=== PATIENT | female | born 1955 | race Caucasian/White ===

== ENCOUNTER → 2018-01-02 | Outpatient (CLI) | payer BC ==
[~2018-01-02] MED LIST: ACET-1256 PO; ATEN-173 PO; BENA20TA14 PO; CELLULAR VITALITY PO; FISH OIL PO; FURO-85 PO; NAPR1TAB9 PO; PANT40TA PO; VENL150C PO; ZONI100C39 PO; [UNRECOGNIZED DRUG - OTHER] PO
[2018-01-02 16:13] LABS: ALBUMIN 3.4 gm/dl (3.4-5.0); ALKALINE PHOSPHATASE 85 U/L (45-117); ALT/SGPT 26 U/L (12-78); AST/SGOT 20 U/L (15-37); CHOLESTEROL 205 mg/dl (0-200); LDL CHOLESTEROL CALCULATED 116 mg/dl
== END | disposition home or self-care (01) ==
LOC: C.LAB 11:40
PROVIDERS: ATTEND Internal Medicine Cardiovascular Disease
DX: I10 Essential (primary) hypertension (principal)

== ENCOUNTER 2018-01-26 08:32 | Inpatient (IN) | payer BC ==
[2018-01-02 11:56] VITALS: Ht 154.9 cm; Wt 112.1 kg
--- NOTE | 2018-01-02 12:36 | PAT Medication Instructions ---
Service Date Jan 02, 2018. Current Home Medication List Acetaminophen (Tylenol), 1-2 TAB PO UD PRN for PRN Atenolol (Tenormin), 25 MG PO BID Benazepril (Lotensin), 20 MG PO QAM Furosemide (Lasix), 20 MG PO QAM Naproxen (Aleve), 220 MG PO UD PRN for PRN Pantoprazole (Protonix), 40 MG PO QAM Venlafaxine Hcl (Effexor Xr), 2 CAP PO HS Zonisamide (Zonegran), 2 CAP PO HS [Cellular Vitality ], Unknown Dose PO QAM [Fish Oil ], 2 CAP PO QAM [Serenity Plus ], 2 CAP PO HS Medication Instructions For Your Scheduled Surgery -Contact your surgeonfor instructions for: Naproxen (Aleve), 220 MG PO UD PRN for PRN - Hold the following medications 2 weeks prior to surgery: [Cellular Vitality ], Unknown Dose PO QAM [Fish Oil ], 2 CAP PO QAM - Hold the following medications the morning of surgery: Benazepril (Lotensin), 20 MG PO QAM Furosemide (Lasix), 20 MG PO QAM - Take the following medications the morning of surgery with a sip of water: Acetaminophen (Tylenol), 1-2 TAB PO UD PRN for PRN (if needed, can be taken up to four hours before surgery) Atenolol (Tenormin), 25 MG PO BID Pantoprazole (Protonix), 40 MG PO QAM - Take the following medications as scheduled the night before surgery: Acetaminophen (Tylenol), 1-2 TAB PO UD PRN for PRN (if needed) Atenolol (Tenormin), 25 MG PO BID Venlafaxine Hcl (Effexor Xr), 2 CAP PO HS Zonisamide (Zonegran), 2 CAP PO HS [Serenity Plus ], 2 CAP PO HS If you have any questions please call us at [phone] or [phone] or [phone]
[2018-01-02 13:14] LABS: BASO % 0.7 %; BASO ABS # 0.05 K/uL (0-0.2); EOS % 1.9 %; EOS ABS # 0.13 K/uL (0-0.5); HEMATOCRIT 42.7 % (37-47); IG# 0.02 K/uL (0.00-0.02); LYMPH % 34.1 %; LYMPH ABS # 2.39 K/uL (1.2-3.4); MEAN CORPUSCULAR HEMOGLOBIN 31.8 pg (25-34); MEAN CORPUSCULAR HGB CONC 32.8 g/dl (32-36); MEAN PLATELET VOLUME 10.3 fL (7.4-10.4); MONO % 10.3 %; MONO ABS # 0.72 K/uL (0.11-0.59); NEUT % 52.7 %; NEUT ABS # 3.69 K/uL (1.4-6.5); PLATELET COUNT 324 K/uL (130-400); RED CELL DISTRIBUTION WIDTH CV 13.6 % (11.5-14.5); RED CELL DISTRIBUTION WIDTH SD 48.6 fL (36.4-46.3)
[2018-01-02 13:27] LABS: CALCIUM 8.8 mg/dl (8.5-10.1); CREATININE 0.82 mg/dl (0.60-1.20); POTASSIUM 4.3 mmol/L (3.5-5.1)
--- NOTE | 2018-01-02 13:31 | DIAGNOSTIC IMAGING REPORT ---
CHEST 2 VIEWS ROUTINE CLINICAL HISTORY: PAT preoperative evaluation COMPARISON STUDY: No previous studies for comparison. FINDINGS: The bones soft tissues and hemidiaphragms are normal. The cardiomediastinal silhouette is normal. The lungs are clear. The pulmonary vasculature is normal. IMPRESSION: Negative chest. The above report was generated using voice recognition software. It may contain grammatical, syntax or spelling errors. Electronically signed by: Davi Victor M.D. 01/02/2018 1:29 PM Dictated Date/Time: 01/02/2018 1:29 PM
[2018-01-26] VITALS (8 sets, daily range): BP systolic 109–157; BP diastolic 58–77; PULSE 68–104; TEMP 35.8–36.8; O2SAT 91–99
[~2018-01-26] VITALS: Ht 154.9 cm; Wt 112.1 kg
[~2018-01-26 08:32] MED LIST changes: +LACTATED RINGER'S 1000ML 1,000 ML IV SCH
[2018-01-26] MEDS ORDERED: LINIGEL19 PO (09:14)
[2018-01-26 09:22] LABS: PTT PATIENT 26.1 SECONDS (21.0-31.0)
[2018-01-26] MEDS ORDERED: MIDAZOLAM HCL 1 MG/ML 2ML VIAL ONE (09:56)
[2018-01-26] MEDS ORDERED: FENTANYL CITRATE INJ 50 MCG/1 ML 2 ML VIAL ONE ×3 (09:56→11:54)
--- NOTE | 2018-01-26 10:05 | History & Physical Bridge Note ---
H&P Re-Evaluation Bridge Note: I have examined the patient, reviewed the History & Physical and in the interval since the performance of the History & Physical I have noted the following changes of clinical significance: No changes noted
--- NOTE | 2018-01-26 10:06 | History and Physical ---
History & Physical Date Jan 26, 2018. Chief Complaint Back and leg pain History of Present Illness The patient is a 63 year old female with complaints of back and leg pain Additional History Hepatic Disease: No Endocrine Disorder: No Kidney Disease: No Hypertension: Yes Heart Disease: No Bleeding Tendencies: No Infectious Diseases: No Allergies Coded Allergies: Penicillins (Verified Allergy, Unknown, RASH, 01/26/18) Sulfa Antibiotics (Verified Allergy, Unknown, RASH, 01/26/18) Home Medications Scheduled Atenolol (Tenormin), 25 MG PO BID Benazepril (Lotensin), 20 MG PO QAM Furosemide (Lasix), 20 MG PO QAM Liniments & Rubs (Deep Blue Relief), PO DIRECTED Pantoprazole (Protonix), 40 MG PO QAM Venlafaxine Hcl (Effexor Xr), 2 CAP PO HS Zonisamide (Zonegran), 2 CAP PO HS [Cellular Vitality ], Unknown Dose PO QAM [Fish Oil ], 2 CAP PO QAM [Serenity Plus ], 2 CAP PO HS Scheduled PRN Acetaminophen (Tylenol), 1-2 TAB PO UD PRN for PRN Physical Examination Skin: warm/dry, no rash Eyes: normal inspection, EOMI, sclerae normal ENT: normal ENT inspection, pharynx normal Head: normocephalic, atraumatic Neck: supple, no adenopathy, trachea midline Respiratory/Chest: lungs clear, normal breath sounds, no respiratory distress Cardiovascular: regular rate, rhythm, no edema, no murmur Abdomen / GI: normal bowel sounds, non tender Back: normal inspection Extremities: normal inspection, normal range of motion Neurologic/Psych: no motor/sensory deficits, alert, normal reflexes, oriented x 3 Diagnosis Lumbar spinal stenosis with spondylolisthesis Plan of Treatment L5-S1 decompression and fusion
[2018-01-26] MEDS ORDERED: CLINDAMYCIN 600 MG/54 ML D5W IV ONE (10:10)
[2018-01-26] MEDS ORDERED: NURSING VERBAL MED ORDER ONE (10:15)
[2018-01-26] MEDS ORDERED: BUPIVACAINE/EPINEPHRINE 0.5% MPF 1:200,000 30 ML VIAL ONE (10:24)
[2018-01-26] MEDS ORDERED: BACITRACIN 50000 UNIT VIAL ONE (10:24)
[2018-01-26] MEDS ORDERED: ATROPINE SULFATE 0.1 MG/ML 5ML SYR IV PRN (10:30)
[2018-01-26] MEDS ORDERED: ONDANSETRON INJ 2 MG/ML 2 ML VIAL IV PRN ×2 (10:30→12:45)
[2018-01-26] MEDS ORDERED: EpHEDrine SULFATE INJ 50 MG/ML AMP IV PRN (10:30)
[2018-01-26] MEDS ORDERED: HYDROmorphone INJ 2 MG/ML SYR/VIAL ONE ×2 (10:59→12:41)
[2018-01-26] MEDS ORDERED: DEXAMETHASONE SOD INJ 4 MG/ML VIAL ONE (12:18)
[2018-01-26] MEDS ORDERED: PROPOFOL IV EMULSION 10 MG/ML 20 ML VIAL IV ONE (12:18)
[2018-01-26] MEDS ORDERED: LIDOCAINE HCL 2% 2 ML VIAL (20MG/ML) ONE (12:18)
[2018-01-26] MEDS ORDERED: FLOSEAL HEMOSTATIC MATRIX 10ML TOP ONE (12:32)
[2018-01-26] MEDS ORDERED: SODIUM CHLORIDE 0.9% 1000ML 1,000 ML IV SCH (12:39)
--- NOTE | 2018-01-26 12:39 | [facility] Operative Report ---
Operative Report Operative Date Jan 26, 2018. Pre-Operative Diagnosis Lumbar Spinal Stenosis Post-Operative Diagnosis Same Procedure(s) Performed 1. Lumbar decompression medial facetectomies foraminotomies L4-5 L5-S1. #2 posterior spinal fusion L5-S1. #3 placement posterior instrumentation L5-S1. #4 interbody fusion L5-S1. #5 placement peek cage 13 x 26 mm L5-S1. #6 laser of locally harvested Jqauez's allograft in the posterior lateral gutters. #7 placement InFUSE collagen sponge, mass graft in the posterior lateral gutters OsteoSet bone graft in the interbody space. Surgeon Dr. Araujo Lumber Stacker Operator Surgeon(s) Ella Hastings PA-C Estimated Blood Loss 100 Findings Severe spinal stenosis Description of Procedure Patient was met with preoperatively case discussed all questions addressed. After informed consent obtained patient was taken to the operative suite underwent intubation and placed in a prone position on the Vincent table on top of the Tl frame. All bony prominences were well-padded eyes inspected to ensure no external pressure placed upon the. This point the lumbar spine was prepped and draped in the normal sterile fashion. Sharp dissection with the assistance of Bovie cautery was performed down to and exposing the lamina and transverse process of L5 and sacral ala bilaterally. Obvious severe facet hypertrophy was appreciated. Complete laminectomy of L5 partial laminectomy was then performed addressing severe lateral recess and foraminal stenosis. Pedicle screws were then placed in L5 and S1 levels bilaterally with the assistance of fluoroscopy and appropriately sized damon placed. Through a transforaminal approach on the right complete discectomy was performed endplates created to subcortical bleeding bone and a 13 x 26 mm peek cage with ostial amp bone graft tapped in position. Rods were then locked in final position bilaterally. The transverse processes L5 and sacral ala burred to subcortical bleeding bone. Infuse collagen sponge master for local harvested Jaquez's allograft was placed in the posterior lateral gutters. 15 round MIGUEL A drain inserted. Incision was then closed with 1 Vicryl in the fascia 2-0 Vicryl subcutaneous 3 4-0 Monocryl for fashion closure Steri-Strips sterile dressings placed. Patient will continue PACU in stable condition. Please note Ella Mccormack was present throughout the entire procedure involved in patient positioning complex portions of the surgery and fashion closure. I attest to the content of the Intraoperative Record and any orders documented therein. Any exceptions are noted below.
[2018-01-26] MEDS ORDERED: NEOSTIGMINE METHYLSULFATE 1 MG/ML 10ML VIAL ONE (12:43)
[2018-01-26] MEDS ORDERED: ONDANSETRON INJ 2 MG/ML 2 ML VIAL ONE (12:43)
[2018-01-26] MEDS ORDERED: PHENYLEPHRINE 100MCG/ML 5ML SYR ONE (12:43)
[2018-01-26] MEDS ORDERED: GLYCOPYRROLATE INJ 0.2 MG/ML VIAL ONE (12:43)
[2018-01-26] MEDS ORDERED: EpHEDrine SULFATE 50MG/5ML SYR ONE (12:43)
[2018-01-26] MEDS ORDERED: BISACODYL 10 MG SUPP PR PRN (12:45)
[2018-01-26] MEDS ORDERED: METOCLOPRAMIDE HCL INJ 5 MG/ML 2 ML VIAL IV PRN (12:45)
[2018-01-26] MEDS ORDERED: ACETAMINOPHEN IV 100 ML IV PRN (12:45)
[2018-01-26] MEDS ORDERED: hydrOXYzine HCL 25 MG TAB PO PRN (12:45)
[2018-01-26] MEDS ORDERED: LORAZEPAM 0.5 MG TAB PO PRN (12:45)
[2018-01-26] MEDS ORDERED: FAMOTIDINE 20 MG TAB PO PRN (12:45)
[2018-01-26] MEDS ORDERED: DO NOT ADMINISTER PNEUMOCOCCAL VACCINE PRN (12:45)
[2018-01-26] MEDS ORDERED: SOD PHOSPHATE/SOD BIPHOSPHATE ENEMA 132 ML BTL PR PRN (12:45)
[2018-01-26] MEDS ORDERED: LORAZEPAM INJ 0.5 MG in SYRINGE 0.75 ML IV PRN (12:45)
[2018-01-26] MEDS ORDERED: NALOXONE HCL 0.4 MG/1 ML VIAL/CARP IV PRN ×2 (12:45)
[2018-01-26] MEDS ORDERED: MAGNESIUM HYDROXIDE SUSP 30 ML UDC PO PRN (12:45)
[2018-01-26] MEDS ORDERED: ALUMINUM/MAGNESIUM SUSP 30 ML UDC PO PRN (12:45)
[2018-01-26] MEDS ORDERED: DO NOT ADMINISTER FLU VACCINE PRN (12:45)
[2018-01-26] MEDS ORDERED: PROMETHAZINE HCL INJ 12.5 MG in SODIUM CHLORIDE 0.9% 50ML 50 ML IV PRN (12:45)
--- NOTE | 2018-01-26 13:05 | DIAGNOSTIC IMAGING REPORT ---
INTRAOPERATIVE RADIOGRAPHS CLINICAL HISTORY: L5-S1 spinal fusion. Fluoroscopy time: 17 seconds. FINDINGS: 2 spot fluoroscopic views of the lumbar spine are presented. There is been discectomy at L5-S1 with laminectomy and posterior fusion at this level. Interpedicular screws are present at both levels. Orthopedic hardware appears intact. IMPRESSION: Intraoperative images from L5 -S1 spinal fusion as above. Electronically signed by: Marshall Mendes M.D. 01/26/2018 1:03 PM Dictated Date/Time: 01/26/2018 1:02 PM
[2018-01-26] MEDS ORDERED: HYDROmorphone HCL 0.5MG/ML 50 ML CASSETTE ONE ×2 (13:06→13:07)
[2018-01-26] MEDS: FENTANYL CITRATE INJ 50 MCG/1 ML 2 ML VIAL IV PRN ×4 (13:22→13:37)
--- NOTE | 2018-01-26 14:23 | Anesthesiology Progress Note ---
Anesthesia Post Op Note Date & Time Jan 26, 2018 at 14:23 Vital Signs Pain Intensity: 4 Vital Signs Past 12 Hours Date Time Temp Pulse Resp B/P (MAP) Pulse Ox O2 Delivery O2 Flow Rate FiO2 01/26/18 14:07 93 20 98 01/26/18 14:07 93 20 01/26/18 14:06 140/54 /18 14:02 86 13 01/26/18 14:02 87 13 98 01/26/18 14:01 129/46 01/26/18 13:58 147/72 18 13:57 89 14 01/26/18 13:57 91 14 99 18 13:52 84 15 98 18 13:52 86 15 01/26/18 13:51 165/77 01/26/18 13:50 88 17 96 18 13:50 36.5 86 17 144/80 (103) 98 Nasal Cannula 4 01/26/18 13:50 88 17 01/26/18 13:46 144/80 01/26/18 13:45 82 24 97 18 13:45 83 24 /18 13:43 135/81 /18 13:41 173/81 /18 13:40 82 21 //18 13:40 81 21 94 //18 13:36 160/72 //18 13:35 82 14 18 13:35 82 14 99 //18 13:34 157/72 /5/18 13:32 81 15 18 13:32 81 15 94 /5/18 13:31 155/79 /5/18 13:27 79 19 4/5/18 13:27 79 19 159/72 98 /5/18 13:26 150/74 /5/18 13:22 77 22 4/5/18 13:22 78 22 100 /5/18 13:21 156/72 4/5/18 13:17 83 16 4/5/18 13:17 83 16 100 /5/18 13:16 146/49 4/5/18 13:12 82 15 4/5/18 13:12 77 15 100 /5/18 13:11 83 17 146/67 100 4/5/18 13:11 80 17 01/26/18 13:06 85 21 01/26/18 13:06 87 21 156/63 99 01/26/18 13:01 88 14 170/73 100 01/26/18 13:01 88 14 01/26/18 12:57 163/76 01/26/18 12:56 36.3 94 14 163/76 (97) 100 Oxymask 10 01/26/18 12:56 98 91 01/26/18 12:56 98 01/26/18 09:18 36.6 68 16 149/ 96 Room Air Notes Mental Status: alert / awake / arousable, participated in evaluation Pt Amnestic to Procedure: Yes Nausea / Vomiting: adequately controlled Pain: adequately controlled Airway Patency, RR, SpO2: stable & adequate BP & HR: stable & adequate Hydration State: stable & adequate Anesthetic Complications: no major complications apparent
[2018-01-26] MEDS: HYDROmorphone HCL 0.5MG/ML 50 ML CASSETTE IV PRN ×2 (14:54→18:58)
[2018-01-26] MEDS: SODIUM CHLORIDE 0.9% 1000ML 1,000 ML IV SCH ×2 (14:55→21:06)
[2018-01-26] MEDS: CLINDAMYCIN IV 600 MG in DEXTROSE 5% 50ML 50 ML IV SCH (18:32)
[2018-01-26] MEDS: VENLAFAXINE HCL XR 150 MG CAPXR PO SCH (21:04)
[2018-01-26] MEDS: DOCUSATE SODIUM/SENNA 50/8.6MG TAB PO SCH (21:05)
[2018-01-27] VITALS (7 sets, daily range): BP systolic 101–130; BP diastolic 63–78; PULSE 68–79; TEMP 36.6–37.1; O2SAT 93–98
[2018-01-27] MEDS: CLINDAMYCIN IV 600 MG in DEXTROSE 5% 50ML 50 ML IV SCH (01:34)
[2018-01-27] MEDS ORDERED: NURSING VERBAL MED ORDER ONE ×2 (03:00→22:00)
[2018-01-27] MEDS ORDERED: HYDROmorphone INJ 1 MG/ML SYR IV PRN (06:00)
[2018-01-27] MEDS ORDERED: DC PCA ONE (06:00)
[2018-01-27] MEDS: ACETAMINOPHEN 500 MG TAB PO PRN ×2 (07:05→17:40)
[2018-01-27 07:09] LABS: BASO % 0.1 %; BASO ABS # 0.01 K/uL (0-0.2); EOS % 0.2 %; EOS ABS # 0.02 K/uL (0-0.5); HEMATOCRIT 33.8 % (37-47); IG# 0.03 K/uL (0.00-0.02); LYMPH % 11.5 %; LYMPH ABS # 1.49 K/uL (1.2-3.4); MEAN CELL VOLUME 96.8 fL (80-100); MEAN CORPUSCULAR HEMOGLOBIN 31.5 pg (25-34); MEAN CORPUSCULAR HGB CONC 32.5 g/dl (32-36); MEAN PLATELET VOLUME 9.3 fL (7.4-10.4); MONO % 15.8 %; MONO ABS # 2.05 K/uL (0.11-0.59); NEUT % 72.2 %; NEUT ABS # 9.35 K/uL (1.4-6.5); PLATELET COUNT 288 K/uL (130-400); RED CELL DISTRIBUTION WIDTH CV 13.9 % (11.5-14.5); RED CELL DISTRIBUTION WIDTH SD 49.3 fL (36.4-46.3); WHITE BLOOD COUNT 12.95 K/uL (4.8-10.8)
--- NOTE | 2018-01-27 07:20 | Clinical Documentation Query ---
FERMIN Quan : CLINICAL DOCUMENTATION QUERY Patient is a 63 year old female who underwent lumbosacral decompression, posterior spinal and interbody fusion. BMI noted to be 46.7 kg/m*m. In order to capture this clinical information, an associated clinical condition must be explicitly documented by the provider. In your clinical opinion is this patient : ( ) Morbidly obese, BMI 46.7 kg/m*m ( ) Not Agree ( ) Other explanation of clinical findings (Please Explain) ( ) Unable to determine (Please Define) ( ) Need to Discuss The medical record reflects the following clinical findings, treatment, and risk factors. Clinical Indicators: As above Treatment: Regular diet Risk Factors: Caloric intake > Caloric expenditure. Please clarify and document your clinical opinion in the progress notes and discharge summary. Terms such as "probable", "suspected", "likely", "questionable", "possible", or "still to be ruled out" are acceptable. IF IN AGREEMENT, YOU MUST DOCUMENT ABOVE DIAGNOSTIC STATEMENT IN DAILY PROGRESS NOTES AND DISCHARGE SUMMARY. This document is not part of the patient's record. Thank You, Guilherme Chisholm, RN [phone]
[2018-01-27 07:41] LABS: CALCIUM 7.9 mg/dl (8.5-10.1); CREATININE 0.68 mg/dl (0.60-1.20); POTASSIUM 3.8 mmol/L (3.5-5.1)
--- NOTE | 2018-01-27 08:18 | Anesthesiology Progress Note ---
Anesthesia Post Op Note Date & Time Jan 27, 2018 at 08:18 Vital Signs Pain Intensity: 7.0 Vital Signs Past 12 Hours Date Time Temp Pulse Resp B/P (MAP) Pulse Ox O2 Delivery O2 Flow Rate FiO2 01/27/18 07:40 36.6 77 14 120/78 (92) 96 Room Air 01/27/18 03:30 36.8 77 16 123/77 (92) 94 Room Air 01/26/18 23:24 36.7 87 16 147/76 (99) 91 Room Air 01/26/18 21:03 93 132/71 (91) Notes patient in restroom washing up with nurse, MIKE patient.
[2018-01-27] MEDS: FUROSEMIDE 20 MG TAB PO SCH (08:43)
[2018-01-27] MEDS: PANTOprazole SOD 40 MG TAB PO SCH (08:43)
[2018-01-27] MEDS: ENALAPRIL MALEATE 10 MG TAB PO SCH (08:44)
[2018-01-27] MEDS: OXYCODONE HCL IR 5 MG TAB (IMMEDIATE RELEASE) PO PRN ×3 (10:55→21:09)
[2018-01-27] MEDS ORDERED: RXC5 PO (13:13)
--- NOTE | 2018-01-27 13:14 | Discharge Instructions ---
Discharge Instructions Date of Service Jan 27, 2018. Admission Reason for Admission: Spinal Stenosis Discharge Discharge Diagnosis / Problem: lumbar stenosis Discharge Goals Goal(s): Improve function Activity Recommendations Activity Limitations: per Instructions/Follow-up section . Instructions / Follow-Up Instructions / Follow-Up ACTIVITY RECOMMENDATIONS: SELF CARE INSTRUCTIONS AFTER THORACIC/LUMBAR FUSIONS 1. You may walk to your tolerance. It is good exercise for your legs and back. Expect some back and intermittent leg aches and pains. 2. You may perform "counter-top" level activities (make a sandwich, norma with a project, etc.). 3. No bending or lifting of more than 10 pounds or back twisting of any nature (roll like a log when turning in bed). 4. You may ride in a car for 20-30 minutes at a time. No driving until after your first visit with your doctor. 5. Frequent changes of position and restricting sitting to 30 minutes at a time will help limit the amount of back spasms and stiffness you may experience. 6. You may discontinue the use of ambulatory aids (cane, crutches, etc.) once your strength and confidence allow. 7. You may international student advisor the shower and let water strike your incision when you arrive home at least once daily. Do not take a tub bath, sit in a hot tub or go into a swimming pool until after your first recheck in the office. SPECIAL CARE INSTRUCTIONS: VERY IMPORTANT TO READ AND REVIEW A. Your surgical incision has been closed with a cosmetic suture under the skin that will dissolve in about 6 weeks. In 14 days, you can use a pair of clean scissors and cut the suture that is left outside of the skin at the ends of your incision. 1. The small skin tapes can be removed 7 days after surgery if they have not fallen off by that point. 2. You may keep the wound open to air as much as possible to promote healing after post-op day number 5 unless told otherwise by your doctor. 3. If you think the wound looks like it is becoming infected (redness or worsening drainage) and/or you are experiencing fever, chill or worsening back pain and muscle spasms, contact the office so that we may evaluate you as soon as possible. B. Complications are uncommon, but please contact us if you have any signs or symptoms of: 1. wound infection (fever higher than 102.5 degrees F, redness, separation of wound, drainage, or increasing pain from the incision) 2. blood clots in legs (pain, swelling, redness and warmth in legs) 3. urinary tract infection (fever higher than 102.5 degrees F, burning upon urination or increased frequency of urination) 4. nerve problems (inability to walk on your toes or heels, numbness, loss of bowel or bladder control) 5. any other symptoms that concern you C. Please call the office at if you have any concerns or questions about your operation or recovery. D. No smoking! Smoking drastically decreases the chance of a solid fusion. E. Do not take any anti-inflammatory medications (Indocin, Advil, Motrin, Aspirin, Naprosyn, etc.) as these may inhibit the chance of a solid fusion. Tylenol is okay to take for pain. MANAGING PAIN AFTER SPINAL SURGERY 1. Narcotic medication is intended for short-term use and will be provided for surgical pain. Surgical pain usually lasts for a period of 4-6 weeks. Narcotic medication includes Percocet, Vicodin, Darvocet, Tylenol #3 or Lortab. 2. Longer-term pain is more appropriately treated with non-narcotic medication such as Tylenol ES. 3. Muscle spasm is not appropriately treated with narcotics. Muscle relaxers such as Soma, Flexeril or Skelaxin can be used along with Tylenol ES. 4. Remember that we all live with some "aches and pains". This is not unusual or uncommon after an injury or as we get older. a. Back pain is expected and may include muscle spasms for 4 to 6 weeks after surgery. The pain should gradually improve. If the pain worsens for no apparent reason, please contact the office. b. Intermittent leg pain may also be experienced and should not be concerned about unless it worsens for no apparent reason. If so, please contact the office. 5. We will provide appropriate medication within the normal guidelines of their prescribed use. We will also be very cautious and aware of potential abuse and extended duration of patients' medication needs. a. Pain medications are for your comfort and to assist with sleep and rest so that the tissue can heal. They are not provided in order to return to normal activity and should not be used through the day. To do so or worsening pain at night can result from ongoing tissue damage and development of tolerance to the prescribed medicine. 6. Please allow 2-3 days to process refills. Prescriptions will not be mailed but must be picked up at the office. FOLLOW UP VISIT: Keep your scheduled follow-up appointment. Any questions, please call the office at . Current Hospital Diet Patient's current hospital diet: Regular Diet Discharge Diet Recommended Diet: Regular Diet Procedures Procedures Performed: 1. Lumbar decompression medial facetectomies foraminotomies L4-5 L5-S1. #2 posterior spinal fusion L5-S1. #3 placement posterior instrumentation L5-S1. #4 interbody fusion L5-S1. #5 placement peek cage 13 x 26 mm L5-S1. #6 laser of locally harvested Jaquez's allograft in the posterior lateral gutters. #7 placement InFUSE collagen sponge, mass graft in the posterior lateral gutters OsteoSet bone graft in the interbody space. Pending Studies Studies pending at discharge: no Laboratory Results Lipid Panel Test 01/02/18 12:46 Range/Units Triglycerides Level 170 H 0-150 mg/dl Cholesterol Level 205 H 0-200 mg/dl HDL Cholesterol 55 mg/dl Cholesterol/HDL Ratio 3.7 LDL Cholesterol, Calculated 116 mg/dl Medical Emergencies . Who to Call and When: Medical Emergencies: If at any time you feel your situation is an emergency, please call 911 immediately. . Non-Emergent Contact Non-Emergency issues call your: Primary Care Provider . "Provider Documentation" section prepared by Jeremy Araujo. .
--- NOTE | 2018-01-27 13:22 | Progress Note ---
Progress Note Date of Service Jan 27, 2018. Progress Note Patient's back pain is controlled her leg symptoms are markedly improved. Vital signs are stable. On exam she is good strength testing appears comfortable. Assessment status post lumbar decompression fusion per plan at this time will continue with physical therapy monitor her MIGUEL A output anticipate discharge home this weekend.
[2018-01-27] MEDS: VENLAFAXINE HCL XR 150 MG CAPXR PO SCH (22:08)
[2018-01-27] MEDS: DOCUSATE SODIUM/SENNA 50/8.6MG TAB PO SCH (22:08)
[2018-01-28] VITALS (7 sets, daily range): BP systolic 106–112; BP diastolic 61–70; PULSE 71–87; TEMP 36.8–37.8; O2SAT 92–93
[2018-01-28] MEDS: POLYETHYLENE (MIRALAX) 17 GM PACK PO SCH ×3 (06:16→17:45)
[2018-01-28] MEDS: ACETAMINOPHEN 500 MG TAB PO PRN ×2 (07:25→15:49)
[2018-01-28] MEDS: FUROSEMIDE 20 MG TAB PO SCH (07:27)
[2018-01-28] MEDS: PANTOprazole SOD 40 MG TAB PO SCH (07:27)
[2018-01-28] MEDS: ENALAPRIL MALEATE 10 MG TAB PO SCH (07:28)
[2018-01-28] MEDS: OXYCODONE HCL IR 5 MG TAB (IMMEDIATE RELEASE) PO PRN ×2 (07:35→20:44)
--- NOTE | 2018-01-28 10:25 | Progress Note ---
Progress Note Date of Service Jan 28, 2018. Progress Note Back pain is controlled leg symptoms are markedly improved. Vital signs stable. On exam she has good strength testing appears comfortable. Assessment status post lumbar decompression fusion. Plan at this time will continue physical therapy monitor MIGUEL A output anticipate discharge home tomorrow.
[2018-01-28] MEDS: VENLAFAXINE HCL XR 150 MG CAPXR PO SCH (20:44)
[2018-01-28] MEDS: DOCUSATE SODIUM/SENNA 50/8.6MG TAB PO SCH (20:44)
[2018-01-29] MEDS: OXYCODONE HCL IR 5 MG TAB (IMMEDIATE RELEASE) PO PRN ×3 (00:32→14:23)
[2018-01-29] MEDS: POLYETHYLENE (MIRALAX) 17 GM PACK PO SCH ×3 (00:35→12:10)
[2018-01-29 06:58] VITALS: BP 115/71; PULSE 87; TEMP 37.5; O2SAT 96
[2018-01-29] MEDS: ENALAPRIL MALEATE 10 MG TAB PO SCH (08:51)
[2018-01-29] MEDS: FUROSEMIDE 20 MG TAB PO SCH (08:51)
[2018-01-29] MEDS: PANTOprazole SOD 40 MG TAB PO SCH (08:51)
--- NOTE | 2018-01-29 10:50 | Discharge Summary ---
Orthopedic Discharge Summary Admission Date/Reason Jan 26, 2018 at 10:00 Spinal Stenosis. Discharge Date/Disposition Jan 29, 2018 Home Diagnosis Principal Diagnosis: Lumbar spinal stenosis Admission Physical Exam As per Admitting History & Physical. Hospital Course Patient underwent lumbar decompression fusion tolerated this well was taken to the orthopedic floor postoperatively. Postop day #1 she was up and amatory progressed the postop day #2. Postop day #3 she was discharged home. Discharge orders and instructions found in the chart for further review. Discharge Instructions Please refer to the electronic Patient Visit Report (Discharge Instructions) for additional information.
[2018-01-29 10:56] VITALS: BP 115/71; PULSE 87; TEMP 37.5; O2SAT 96
[2018-01-29 15:11] VITALS: BP 120/72; PULSE 76; TEMP 38.1; O2SAT 100
--- NOTE | 2018-01-31 07:17 | EDITING REQUIRED CODING QUERY ---
BMI To promote full compliance with coding requirements relating to patient care, physician participation is requested in all cases of remote inpatient coder uncertainty. Please assist us with the question(s) below: Please place an X within the parenthesis (x). If other, please document: BMI 46.7 was documented in this record for this patient. If the BMI is significant, please check the box that provides a more specific associated diagnosis: ( ) Overweight/Obese (x ) Obesity ( ) Morbid obesity ( ) Obesity Hypoventilation Syndrome (OHS) ( ) Heathy weight, not significant ( ) Underweight/Thin ( ) Other, please specify Thank you Shruti Da Silva
== END 2018-01-29 16:09 | disposition home or self-care (01) | DRG 454 ==
LOC: C.ACU 08:32 → C.3E 10:00 → ENRESERV 13:21
PROVIDERS: ADMIT Orthopaedic Surgery Orthopaedic Surgery of the Spine; ATTEND Orthopaedic Surgery Orthopaedic Surgery of the Spine
PROC: 0SG30K1 Fusion of Lumbosacral Joint with Nonautologous Tissue Substitute, Posterior Approach, Posterior Column, Open Approach (ICD-10-PCS; principal; 2018-01-26 10:25)
PROC: 0SG30AJ Fusion of Lumbosacral Joint with Interbody Fusion Device, Posterior Approach, Anterior Column, Open Approach (ICD-10-PCS; principal; 2018-01-26 10:25)
PROC: 0ST40ZZ Resection of Lumbosacral Disc, Open Approach (ICD-10-PCS; principal; 2018-01-26 10:25)
DX: M48.061 Spinal stenosis, lumbar region without neurogenic claudication (principal); Z68.42 Body mass index [BMI] 45.0-49.9, adult; M43.16 Spondylolisthesis, lumbar region; I10 Essential (primary) hypertension; E66.9 Obesity, unspecified; Z79.899 Other long term (current) drug therapy; Z88.0 Allergy status to penicillin; Z88.2 Allergy status to sulfonamides

== ENCOUNTER 2022-06-11 05:01 | Observation (INO) ==
--- NOTE | 2022-03-22 21:07 | PAT Medication Instructions ---
Medication Instructions Date of Service March 22, 2022 Home Medications Doterra 1 dose PO QAM Microplex Doterra 1 dose PO QAM aspirin 81 mg tablet,delayed release 81 mg PO QAM atenolol 25 mg tablet 25 mg PO BID atorvastatin 80 mg tablet (Lipitor) 80 mg PO HS furosemide 20 mg tablet (Lasix) 20 mg PO QAM lisinopril 20 mg tablet 20 mg PO BID omega-3 fatty acids 1,000 mg PO QAM pantoprazole 40 mg tablet,delayed release (Protonix) 40 mg PO QAM venlafaxine 150 mg capsule,extended release 24 hr (Effexor XR) 300 mg PO HS zonisamide 100 mg capsule 200 mg PO HS ASK your prescriber and surgeon aspirin 81 mg tablet,delayed release 81 mg PO QAM STOP taking 2 weeks before surgery (or as soon as possible if surgery is within 2 weeks) Doterra 1 dose PO QAM Microplex Doterra 1 dose PO QAM omega-3 fatty acids 1,000 mg PO QAM DO NOT take the morning of surgery furosemide 20 mg tablet (Lasix) 20 mg PO QAM lisinopril 20 mg tablet 20 mg PO BID Take morning of surgery With a small sip of water, OTHERWISE NOTHING TO EAT OR DRINK AFTER MIDNIGHT: atenolol 25 mg tablet 25 mg PO BID pantoprazole 40 mg tablet,delayed release (Protonix) 40 mg PO QAM Take evening before surgery atenolol 25 mg tablet 25 mg PO BID atorvastatin 80 mg tablet (Lipitor) 80 mg PO HS lisinopril 20 mg tablet 20 mg PO BID venlafaxine 150 mg capsule,extended release 24 hr (Effexor XR) 300 mg PO HS zonisamide 100 mg capsule 200 mg PO HS Other Notes If you have any questions please call us at [phone] or [phone] or [phone] or [phone]
--- NOTE | 2022-03-24 13:16 | Anesthesiology Consultation ---
Date of Service March 24, 2022 Assessment & Plan (1) Encounter for pre-operative examination: Chart Review Chart Review: Pending: Refer to Additional Notes / Consult section (pending nuclear stress test results, PCP clearance with response to thrombocytosis, and preop Covid testing results ) and Patient seen in Pre Admission Testing - Awaiting nuclear stress test results -Awaiting PCP clearance (will write note re: platelets to PCP to address at appt) Per PAT appt on 03/24/22, patient denies any recent travel or large group activities. No known Covid positive exposures or Covid related symptoms. No known Covid infection in the past 90 days. Pt is vaccinated for Covid. Preop Covid testing scheduled 04/20/22 = will await results. Educated on importance of self quarantining, social distancing and wearing mask in public for the patient one week prior to surgery and after Covid testing done Patient seen by real property evaluator 03/19/2022 = seen for preoperative evaluation. Scheduled for right ankle surgery. History of STEMI over 1 year ago. Schedule patient for Lexiscan Cardiolite stress test due to upcoming surgery. We will al so have patient monitor BP twice a day and bring readings to stress test appt. If BP continually elevated- may adjust meds. Pt is cleared for her surgery as long as she is not ischemic. L5-S1 decompression with fusion 01/26/18= Done under [facility] with Grade 1 view with MAC #3. ETT #7.0. Teaching & Discussion Pre-Anesthesia Teaching/Discussion Notes: Instructed NPO after midnight before surgery,except medications with 15 cc of water. Medication instructions provided according to the PAT guidelines. History Surgery Operation Date: 04/23/22 10:25 Proposed Procedures p Right [place] Total Ankle Arthroplasty - Jovan Romo DO s Percutaneous Tendon Achilles - Jovan Romo DO Height/Weight Height: 5 ft 1 in Weight: 100.8 kg Allergies Allergy/AdvReac Type Severity Reaction Status Date / Time Penicillins Allergy Unknown RASH Verified 03/19/22 13:32 Sulfa (Sulfonamide Allergy Unknown RASH Verified 03/19/22 13:32 Antibiotics) Medications Home Medications Medication Instructions Recorded Confirmed Last Taken Doterra 1 dose PO QAM 03/19/22 03/19/22 Unknown Microplex Doterra 1 dose PO QAM 03/19/22 03/19/22 Unknown aspirin 81 mg tablet,delayed 81 mg PO QAM 03/19/22 03/19/22 Unknown release atenolol 25 mg tablet 25 mg PO BID 03/19/22 03/19/22 Unknown atorvastatin 80 mg tablet (Lipitor) 80 mg PO HS 03/19/22 03/19/22 Unknown furosemide 20 mg tablet (Lasix) 20 mg PO QAM 03/19/22 03/19/22 Unknown lisinopril 20 mg tablet 20 mg PO BID 03/19/22 03/19/22 Unknown omega-3 fatty acids 1,000 mg PO QAM 03/19/22 03/19/22 Unknown pantoprazole 40 mg tablet,delayed 40 mg PO QAM 03/19/22 03/19/22 Unknown release (Protonix) venlafaxine 150 mg 300 mg PO HS 03/19/22 03/19/22 Unknown capsule,extended release 24 hr (Effexor XR) zonisamide 100 mg capsule 200 mg PO HS 03/19/22 03/19/22 Unknown Past Medical History Medical History (Updated 03/24/22 @ 13:38 by Alicia Martínez PA-C) Anxiety Bipolar disorder Stable Depression Elevated platelet count -Being monitored with PCP (Dr. Ian Shepard; [place]) - Has never seen heme GERD (gastroesophageal reflux disease) Well controlled and stable Heart attack Stent to mRCA 01/26/2021 ([facility]) Plavix was dc'ed last month > follows with Dr. Dumont in [facility] Hiatal hernia History of COVID-19 07/2021 > tired, cold like symptoms Symptoms fully resolved Hx of spinal stenosis Hyperlipidemia Hypertension Sleep apnea Cannot tolerate BIPAP Stress incontinence Exercise / Class Metabolic Activity II 4-5 Yardwork/Stairs/Walk up hill (one flight of stairs - no chest pain or SOB ) Past Family History Family History Grandfather Colon cancer Past Surgical History Surgical History H/O breast biopsy benign History of carpal tunnel release right History of cataract surgery bilat History of colonoscopy History of cryosurgery History of endometrial ablation History of gastric bypass History of heart artery stent stent to LAD in January 2021 [facility] in [facility] History of lumbar fusion L5-S1 decompression/fusion (01/26/18): Grade view 1, MAC#3, ETT 7.0 at [facility]. No issues per post-op anesthesia progress note. History of tooth extraction History of total knee replacement bilat Past Anesthesia History No Hx of Anesthesia Complications and No Family Hx of Anesthesia Complications History of PONV No Hx of PONV and No Hx of Motion Sickness Social History Smoking Status: Never smoker Do You Dip or Chew Tobacco: No Hx Alcohol Use: Yes Alcohol type: wine alcohol intake frequency: a few times a month Hx Substance Use: No substance use type: does not use Review of Systems Hx of blood transfusions after each TKA (states she required 4 units each time) Patient denies chest pain, shortness of breath at rest, cough, wheezing, palpitations. No hx of seizures, stroke. No hx of blood clots. Physical Exam Vital Signs VITALS BP 112/67 P 73 TEMP 98.4 SP02 99% RESP 16 Constitutional no acute distress ENMT Mouth: no TMJ clicking Thyromental Distance: > or= 3.5 Finger Breadths (3.5) Mallampati Class: I Crowns to side teeth (top left side) Neck neck extension not limited Respiratory normal respiratory effort; no respiratory distress Auscultation: lungs clear to auscultation bilaterally; no wheezes Cardiovascular Rate/Rhythm: regular rate and regular rhythm Heart Sounds: no murmur Vessels: no carotid bruit Musculoskeletal Spine: no pain with cervical ROM Extremities: extremities normal to inspection Psychiatric Orientation: alert Lab Results Anesthesia Preop Results Results Anesthesia Widget: WBC 10.33 K/uL (4.8-10.8) 03/24/22 Hgb 12.7 g/dL (12.0-16.0) 03/24/22 Hct 42.2 % (37-47) 03/24/22 Plt 938 K/uL (130-400) H 03/24/22 Na 139 mmol/L (136-145) 03/24/22 K 3.5 mmol/L (3.5-5.1) 03/24/22 Cl 105 mmol/L (98-107) 03/24/22 CO2 27 mmol/L (21-32) 03/24/22 BUN 20 mg/dl (6-23) 03/24/22 Creat 0.83 mg/dl (0.6-1.2) 03/24/22 Glucose Level 128 mg/dl (70-99(Fasting)) H 03/24/22 PT 10.9 Seconds (9.0-12.0) 03/24/22 PTT 28.8 Seconds (21.0-31.0) 03/24/22 INR 1.0 (0.9-1.1) 03/24/22 Blood Type A Positive 03/24/22 Antibody Screen NEGATIVE 03/24/22 Testing Laboratory Results Elevated platelet count- sent note to PCP to address at medical clearance appt 03/02/22= HGB A1C: 6.0 Electrocardiogram Date: 03/19/22 Findings: + SB @ (58bpm ) Left axis deviation. Nonspecific ST abnormality Echocardiogram Date: 06/12/21 EF: 50-55% LV Function: normal Other Findings: + diastolic dysfunction; no LVH Mild LV septal wall hypokinesis. Apical septal segment is abnormal. Mild thickening of the anterior and posterior mitral valve leaflets. No evidence of pericardial effusion. In comparison to previous echocardiogram done 01/27/2021the wall motion abnormalities have mostly resolved and the LV function has improved from 45-50% to 50-55% Cardiac Catheterization Date: 01/26/21 LM = normal LAD = mild diffuse disease in proximal portionremaining vessel is tortuous and angiographically normal Circumflex = normal-appearing. RCA = ulcerated plaque around 80 to 85% to distal segment Ramus = normal angiographically Conclusions: Acute inferior STEMI. Successful stenting of distal RCA. Mild ischemic cardiomyopathyLVEF appears to be in the range of 45% with moderate hypokinesis of inferior wall.
--- NOTE | 2022-05-10 10:27 | PAT Medication Instructions ---
Medication Instructions Date of Service May 10, 2022 Home Medications Doterra 1 dose PO QAM Microplex Doterra 1 dose PO QAM aspirin 81 mg tablet,delayed release 81 mg PO QAM atenolol 25 mg tablet 25 mg PO BID atorvastatin 80 mg tablet (Lipitor) 80 mg PO HS furosemide 20 mg tablet (Lasix) 20 mg PO QAM lisinopril 20 mg tablet 20 mg PO BID omega-3 fatty acids 1,000 mg PO QAM pantoprazole 40 mg tablet,delayed release (Protonix) 40 mg PO QAM venlafaxine 150 mg capsule,extended release 24 hr (Effexor XR) 300 mg PO HS zonisamide 100 mg capsule 200 mg PO HS hydroxyurea 500 mg capsule 500 mg PO QAM Continue as directed nitroglycerin 0.4 mg sublingual tablet 0.4 mg sublingual UD PRN(if needed) ASK your prescriber and surgeon aspirin 81 mg tablet,delayed release 81 mg PO QAM hydroxyurea 500 mg capsule 500 mg PO QAM STOP taking 2 weeks before surgery Doterra 1 dose PO QAM Microplex Doterra 1 dose PO QAM omega-3 fatty acids 1,000 mg PO QAM DO NOT take the morning of surgery furosemide 20 mg tablet (Lasix) 20 mg PO QAM lisinopril 20 mg tablet 20 mg PO BID Take morning of surgery With a small sip of water, OTHERWISE NOTHING TO EAT OR DRINK AFTER MIDNIGHT: atenolol 25 mg tablet 25 mg PO BID pantoprazole 40 mg tablet,delayed release (Protonix) 40 mg PO QAM Take evening before surgery atenolol 25 mg tablet 25 mg PO BID atorvastatin 80 mg tablet (Lipitor) 80 mg PO HS lisinopril 20 mg tablet 20 mg PO BID venlafaxine 150 mg capsule,extended release 24 hr (Effexor XR) 300 mg PO HS zonisamide 100 mg capsule 200 mg PO HS Other Notes If you have any questions please call us at [phone] or [phone] or [phone] or [phone]
--- NOTE | 2022-06-10 17:31 | History & Physical Report ---
Date of Service June 10, 2022 Assessment & Plan (1) Primary osteoarthritis, right ankle and foot: Plan: Schedule a right ankle STAR total ankle replacement, percutaneous tendo Achilles lengthening 06/10/2022. All potential risks, benefits, complications, alternatives, and rehab have been discussed with the patient and she wishes to proceed. Plan for aspirin 81 mg twice daily x4 weeks for postoperative DVT prophylaxis. (2) Contracture of right Achilles tendon: History of Present Illness Chief Complaint: Right ankle pain Primary Care Provider: Ian Shepard This is a patient with a long history of right ankle pain. She been treated conservatively for right ankle osteoarthritis. However, she has failed all conservative management. She is now being set up for surgical management. Allergies Allergy/AdvReac Type Severity Reaction Status Date / Time Penicillins Allergy Mild RASH Verified 06/11/22 05:43 Sulfa (Sulfonamide Allergy Mild RASH Verified 06/11/22 05:43 Antibiotics) Home Medications Medication Instructions Recorded Confirmed Type Doterra 1 dose PO QA 03/19/22 06/11/22 History Microplex Doterra 1 dose PO [facility] 03/19/22 06/11/22 History aspirin 81 mg tablet,delayed 81 mg PO [facility] 03/19/22 06/11/22 History release atenolol 25 mg tablet 25 mg PO BID 03/19/22 06/11/22 History atorvastatin 80 mg tablet (Lipitor) 80 mg PO 03/19/22 06/11/22 History furosemide 20 mg tablet (Lasix) 20 mg PO [facility] 03/19/22 06/11/22 History lisinopril 20 mg tablet 20 mg PO BID 03/19/22 06/11/22 History omega-3 fatty acids 1,000 mg PO QAM 03/19/22 06/11/22 History pantoprazole 40 mg tablet,delayed 40 mg PO [facility] 03/19/22 06/11/22 History release (Protonix) venlafaxine 150 mg 300 mg PO 03/19/22 06/11/22 History capsule,extended release 24 hr (Effexor XR) zonisamide 100 mg capsule 200 mg PO 03/19/22 06/11/22 History hydroxyurea 500 mg capsule 500 mg PO [facility] 05/10/22 06/11/22 History nitroglycerin 0.4 mg sublingual 0.4 mg sublingual UD PRN Chest Pain 05/10/22 06/11/22 History tablet Past Med/Surg History Medical History Anxiety and depression Bipolar disorder CAD (coronary artery disease) s/p 1 YESSI Elevated platelet count upcoming consult 04/20/22 GERD (gastroesophageal reflux disease) Heart attack Stent to mRCA 01/26/2021 ([facility]/[place] [facility]) follows with Dr. Dumont in [facility] Hematest positive stools RECENT APT WITH GI>PLANNED COLONOSCOPY/EGD UPCOMING ?DATE Hiatal hernia History of COVID-19 07/2021 > tired, cold like symptoms 03/2022>COLD SYMPTOMS *TEST DONE AT [facility] (RESOLVED SYMPTOMS) Hx of gastric ulcer Hx of spinal stenosis Hyperlipidemia Hypertension Ischemic cardiomyopathy EF 45% 01/26/21 STEMI, EF 50-55% on subsequent 06/12/21 echo mild LV septal wall hypokinesis Low iron Sleep apnea Cannot tolerate BIPAP Stress incontinence Surgical History H/O breast biopsy benign History of cardiac catheterization 01/26/21: Acute inferior STEMI. EF 45% moderate hypokinesis inferior wall Left main: normal. LAD: mild diffuse disease. Cx: mild disease. RCA: 80-85% ulcerated plaque distal segment-->s/p 1 YESSI. History of carpal tunnel release right History of cataract surgery bilat History of colonoscopy History of cryosurgery History of endometrial ablation History of esophagogastroduodenoscopy (EGD) History of gastric bypass GREATER THAN 8 YEARS AGO History of heart artery stent stent to LAD in January 2021 [facility] in [place] [facility] History of lumbar fusion L5-S1 decompression/fusion (01/26/18): Grade view 1, MAC#3, ETT 7.[address] [facility]. No issues per post-op anesthesia progress note. History of tooth extraction History of total knee replacement RT/LEFT Family History Grandfather Colon cancer Other No family history of adverse response to anesthesia Social History Smoking Status: Never smoker Second Hand Exposure: No; Do You Dip or Chew Tobacco: No; Tobacco Cessation Education Requested by Patient: No Hx Alcohol Use: Yes Alcohol type: wine Preferred Language: [place]guill[place] Communication Ability: Effective Baseball Scout Required: No Beliefs That Will Affect Care: None Current Living Situation: Spouse Other Information That Helps Us Care for You: No Feels Safe at Home: Yes Safety Concerns: Feels Safe At This Time Assistive Devices: Glasses Assistive Devices Comment: ortho boot Physical Exam Constitutional: well developed and well nourished; no acute distress ENMT: external ear and nose normal, oropharynx normal Neck: trachea midline Respiratory: normal respiratory effort, lungs clear to auscultation Cardiovascular: Rate/Rhythm: regular rate and regular rhythm Gastrointestinal (Abdomen): normal bowel sounds, soft, nontender, no hepatosplenomegaly Musculoskeletal: Ankle: + ankle ROM with crepitation (Right ankle) and + joint line tenderness (ankle) (Right anterior and posterior ankle); no skin erythema and no ecchymosis Skin: no rashes, warm and dry Trauma: no evidence of skin trauma Neurologic: normal touch/pain/proprioception Psychiatric: A+Ox3, euthymic affect Speech: normal rate/rhythm/volume of speech Lymphatic: no cervical or axillary lymphadenopathy
[2022-06-11] MEDS ORDERED: LR 15ML/HR IV SCH (06:00)
[2022-06-11] MEDS ORDERED: EPINEPHrine INJ 1 MG/ML AMP ONE (06:26)
[2022-06-11] MEDS ORDERED: BUPIVACAINE 0.25% 30 ML VIAL ONE (06:26)
[2022-06-11] MEDS ORDERED: ONDANSETRON INJ 2 MG/ML 2 ML VIAL IV PRN ×2 (06:50→12:55)
[2022-06-11] MEDS ORDERED: fentaNYL citrate 100 MCG/2 ML VIAL IV PRN (06:50)
[2022-06-11] MEDS ORDERED: ePHEDrine sulfate 50 MG/ML AMP IV PRN (06:50)
[2022-06-11] MEDS ORDERED: ATROPINE SULFATE 0.1 MG/ML 10ML SYR IV PRN (06:50)
[2022-06-11] MEDS ORDERED: HYDROmorphone INJ 2 MG/ML SYR/VIAL IV PRN (06:50)
[2022-06-11] MEDS ORDERED: MIDAZOLAM HCL 1 MG/ML 2ML VIAL ONE (06:57)
[2022-06-11] MEDS ORDERED: fentaNYL citrate 100 MCG/2 ML VIAL ONE ×2 (06:57→08:37)
--- NOTE | 2022-06-11 07:18 | History & Physical Bridge Note ---
Date of Service June 11, 2022 History & Physical Bridge Note I have examined the patient, reviewed the History & Physical and in the interval since the performance of the History & Physical I have noted the following changes of clinical significance: no changes noted
[2022-06-11] MEDS ORDERED: ceFAZolin 2,000 MG/15 ML IV PUSH IV ONE (07:35)
[2022-06-11] MEDS ORDERED: ceFAZolin 2000MG 2,000 MG/15 ML SYR IV ONE (07:38)
[2022-06-11] MEDS ORDERED: THROMBIN FOR SOLN 20000 UNIT KIT ONE (08:23)
[2022-06-11] MEDS ORDERED: CALCIUM CHLORIDE 10% 10 ML SYR IV ONE (08:23)
[2022-06-11] MEDS ORDERED: ceFAZolin 330 MG/ML 1 GM VIAL ONE (08:23)
[2022-06-11] MEDS ORDERED: ONDANSETRON INJ 2 MG/ML 2 ML VIAL ONE (10:28)
[2022-06-11] MEDS ORDERED: PROPOFOL IV EMULSION 10 MG/ML 20 ML VIAL IV ONE ×2 (10:28→11:27)
[2022-06-11] MEDS ORDERED: LIDOCAINE 2% 2 ML VIAL/AMP(20MG/ML) INFIL ONE (10:28)
[2022-06-11] MEDS ORDERED: GLYCOPYRROLATE 0.2 MG/ML VIAL ONE (10:29)
[2022-06-11] MEDS ORDERED: NEOSTIGMINE METHYLSULFATE 1 MG/ML 10ML VIAL ONE (10:29)
[2022-06-11] MEDS ORDERED: ESMOLOL HCL INJ 10 MG/ML 10ML VIAL IV ONE (10:29)
--- NOTE | 2022-06-11 11:03 | Post Operative Brief Note ---
Immediate Post Op Note v1 Date of Surgery June 11, 2022 Pre & Post Diagnosis Operation Date: 06/11/22 07:15 Pre-Op Diagnosis: (1) Primary severe osteoarthritis, right ankle and foot: (2) Contracture of right Achilles tendon: Post-Op Diagnosis: (1) Primary severe osteoarthritis, right ankle and foot: (2) Contracture of right Achilles tendon: I identified the patient and participated in the time-out.: Yes Procedure Operation Date: 06/11/22 07:15 Actual Procedures p Right [facility] Total Ankle Arthroplasty, size extra small talus, medium tibia, 8 mm polyethylene (Right) - Jovan Romo DO s Percutaneous Tendon Achilles Lengthening(Right) - Jovan Romo DO Surgeon Jovan Romo DO Valet Manager Baljit De Los Santos PA-C Estimated Blood Loss 75 Findings Consistent with Post-Op Diagnosis Specimens Bone and tissue right ankle Drains Hemovac Drain Anesthesia Type General Regional Complications none Disposition Accompanied Patient To Recovery: No Overlapping Procedure I was present for: the critical portions of procedure. I was immediately available: during the entire case.
--- NOTE | 2022-06-11 11:36 | Anesthesiology Progress Note ---
Date of Service June 11, 2022 Anesthesia Post Procedure Vital Signs Vital Signs: Temp Pulse Pulse Resp BP Pulse Ox O2 Del Method 06/11/22 11:30 65 14 152/80 H 100 Oxymask 06/11/22 11:20 36.2 C L 68 18 140/68 100 Oxymask 06/11/22 05:38 36.4 C L 66 20 137/60 99 Room Air O2 Flow Rate 06/11/22 11:30 5 06/11/22 11:20 5 06/11/22 05:38 Transfer of Care Handoff Completed per policy Notes Mental Status: alert / awake / arousable and participated in evaluation Patient Amnestic to Procedure: Yes Nausea / Vomiting: adequately controlled Pain: adequately controlled Airway Patency, RR, SpO2: stable & adequate BP & HR: stable & adequate Hydration State: stable & adequate Anesthetic Complications: no major complications apparent and Pt Satisfied with anesthetic care
--- NOTE | 2022-06-11 11:41 | Operative Report (OR) ---
DATE OF PROCEDURE: 06/11/2022. PREOPERATIVE DIAGNOSES: 1. Right ankle severe osteoarthritis. 2. Achilles tendon contracture. POSTOPERATIVE DIAGNOSES: 1. Right ankle severe osteoarthritis. 2. Achilles tendon contracture. PROCEDURE: 1. Right skin even total ankle replacement, size medium tibia, size extra small talus and an 8 mm polyethylene. 2. Percutaneous tendo-Achilles lengthening. SURGEON: Jovan Romo DO. EDITORIAL DIRECTOR: Baljit De Los Santos PA-C who was present for patient positioning, sterile prep and drape, management of retractors and instruments. He was present through the critical portions of the case including wound closure, application of sterile dressing and transport of the patient to recovery. ANESTHESIA: General, regional. SPECIMENS: Bone and tissue, right ankle. DRAINS: Hemovac x1. COMPLICATIONS: None. BLOOD LOSS: 75 mL. PERTINENT HISTORY: This is a 67-year-old female who has attempted and failed conservative management for severe ankle osteoarthritis, pain and loss of function of the right lower extremity over the last 2 to 3 years. She had attempted brace, anti-inflammatories, ice, rest, physician-directed home exercises, physical therapy and steroid injections without relief. Radiographs demonstrate severe complete loss of articular cartilage with [id number] arthropathy of the ankle joint with marginal osteophytes, subchondral sclerosis, and subchondral cyst formation. The patient was then scheduled for surgery as indicated. All potential risks, benefits, complications, alternatives, rehab potential for incomplete relief of symptoms, need for further surgery, DVT, PE, , persistent pain, swelling, scarring, weakness, neurovascular injury, wound complications, hardware failure, nonunion, malunion, bone fracture were discussed with the patient. The patient decided to proceed with the procedure as indicated. PROCEDURE: The patient was taken to the operative suite after popliteal block was administered. The patient was placed supine on the operating room table. Tourniquet was applied over the right lower extremity. After the patient was anesthetized, LMA was placed. The right lower extremity was then sterilely prepped and draped in the usual sterile fashion [id number], elevated and exsanguinated with an Esmarch bandage, and tourniquet inflated to 350 mmHg. After surgical timeout was performed, a 3 part percutaneous tendo Achilles lengthening was performed with 11 blade scalpel making 3 small partial step cuts into the posterior Achilles with the foot held in neutral dorsiflexion causing a palpable partial release and measured lengthening of the Achilles tendon. Skin blank were used to close the small stab incisions. Next, a 15-blade scalpel incision made in the midline of the right ankle taking care to identify the tibialis anterior. The incision was made lateral to the tibialis anterior and centered over the extensor hallucis longus tendon. The incision was deepened through subcutaneous tissue. Meticulous hemostasis was achieved with electrocautery. Full-thickness skin flaps were developed. Superficial peroneal nerve was identified, retracted, and protected. Next, the extensor retinaculum was incised along the skin incision to the lateral aspect of the tibialis anterior. Tibialis anterior was retracted medially. The extensor hallucis longus and the neurovascular bundle beneath were retracted laterally. The small crossing vessels were cauterized. The anterior capsule was then incised in its midline and then elevated medially and laterally with electrocautery. Appropriate soft tissue retractors were placed carefully to maintain essentially zero skin tension on the superficial skin. After the capsule was elevated and retracted medially and laterally to visualize the medial and lateral malleoli clearly, rongeur was used to perform synovectomy and remove any excess debris and loose bodies. Next, the wound was irrigated and suctioned. Good visualization was obtained. At this point the anterior lip of hypertrophic bone was resected from the tibia with an osteotome and mallet followed by resection of a small osteophyte medially at the medial malleolus. Next, the tibial plafond could be clearly visualized. The neck of the talus was then rongeured down to the true neck of the talus after all hypertrophic osteophytes were excised. Next, attention was directed toward the proximal tibia at which point a 15-blade scalpel incision was made anterior of the tibial tubercle the inferior aspect using the external alignment guide as a guide for pin placement which was essentially in the midline of the tibia with a slight degree of plantar flexion. Guide was placed anteriorly using a small osteotome in the medial gutter of the ankle joint to mailing machine helper in alignment. Next, the small 2.4 mm pin was placed adjacent to the tibial tubercle and the alignment guide was placed approximately one fingerbreadth above the soft tissue and fastened there at approximately four notches medialized proximally. Next, the T- handle guide was placed anteriorly and then this was aligned with the small osteotome and placed in the medial gutter of the ankle joint to make this parallel and then also the orientation of the second ray of the foot was used to guide as well. Next, the more proximal alignment block was pinned unicortically followed by placement of the lateral alignment guide on the tibial alignment jig and the T-handle was removed. Distal cutting block was then fastened to the distal aspect of the tibial alignment guide and then x-rays obtained in AP and lateral projections of the ankle and tibia assuring appropriate alignment of the tibial alignment guide and the tibial cutting block. After appropriate alignment was established, the distal cutting block was then pinned in place with two 2.4 mm pins, one in the proximal and then secondarily in the distal aspect of the tibial cutting guide and the tibial cutting guide was aligned at the inferior aspect at the level of the tibial plafond. Next, after the tibial cutting blocks were aligned and confirmed, the medial and lateral saw capture pins were placed followed by resection of the distal tibia with a sagittal saw. The pins were removed and the distal cutting guide was then removed followed by removal of the distal tibial cut fragment after it was morselized with a small osteotome and resected with a rongeur. A cervical lamina binding dyer was placed in the ankle joint to open the ankle joint followed by resection of the posterior fragments from the distal tibia cut. Next, the talar cutting guide paddle was placed at the distal tibial cutting guide and fastened in place. The ankle was held in neutral dorsiflexion. Four pins were placed in the talar cutting block fixing the talus in appropriate alignment. Next, after the saw capture pins were placed, the sagittal saw was used to resect the superior aspect of the talus. The talar cutting block guide was then removed as well as the pins and talus. This was then followed by placement of datum guide which was initially placed as an extra small position with regard to position on the talus as well as orientation along the second ray. Central pin was placed and then the posterior capture cutting guide was attached and the anterior milling guide was also fastened with two football screws. Next, the anterior mill was used to resect the anterior aspect of the talar dome. Posterior cut was made. This jig was then removed followed by placement of the shoulder cutting guide and the reciprocating saw was just resect the shoulder portions of the talus using the laser cut line. This guide was then removed leaving the central pin followed by resection of the fragments using a small osteotome and mallet. This was then elevated and resected. Next, the window trial was firmly affixed to the superior aspect of the talus using fluoroscopic confirmation of alignment and position. Next, the central keel was drilled. The window trial was then removed following use of the central keel punch. This was also confirmed using fluoroscopic assistant director. The wound was copiously irrigated with pulsatile lavage with Bacitracin additive followed by suctioning of the talar component. The final talar component was impacted in place with fluoroscopic assistance. Next, a trial polyethylene 8 mm was placed in the joint and the posterior aspect of the tibia was measured both medially and laterally. Appropriate size tibial drill guide was then placed and fastened with two pins. This was confirmed with x-ray and then the barrel drills x 2 were performed making certain to aim proximally. Next, the barrel cutting jig was then used to perform the final punch medially and laterally. The trial plate was then removed after appropriate sized polyethylene was sized. Next, the joint was copiously irrigated with pulsatile lavage followed by suctioning of all surfaces. The tibia component was then impacted in place with the trial polyethylene liner in place to ensure adequate positioning. Next, the final impactor was used to seat the tibial base tray flush with the anterior aspect of the tibia followed by bone grafting of the anterior barrel holes with local bone graft. This was impacted in place with a mallet and bone tamp. This then followed by confirmation with C-arm and then final polyethylene was inserted without difficulty. Excellent range of motion and stability was obtained. No liftoff was noted. A 10-Malian single-lumen Hemovac drain was placed anterolaterally followed by closure of the ankle joint capsule with #1 Vicryl. The extensor retinaculum was closed using interrupted 2-0 Vicryl, the dermis closed buried 3-0 Vicryl, and skin was closed using 4-0 nylon. A sterile compressive bulky Chadwick Fish plaster splint was applied overwrapped with an Roddy wrap. Tourniquet was released. The patient was awakened and taken to recovery in stable condition. Job ID: [id number] [facility]
--- NOTE | 2022-06-11 12:06 | XRay Report ---
RIGHT ANKLE 3 VIEWS CLINICAL HISTORY: Postoperative examination. Arthroplasty. FINDINGS: 3 portable views of the right ankle are obtained. No prior studies are available for compar aleida at the time of dictation. The skeletal structures are osteopenic. The examination is performed t hrough a cast, obscuring fine bony detail. An arthroplasty at the tibiotalar articulation is in near- anatomic alignment. No acute fracture is seen. A surgical drain, dorsal skin clips, soft tissue swell ing, and subcutaneous gas are expected postoperative changes. There are dorsal and plantar calcaneal enthesophytes. Degenerative spurring is seen along the dorsal aspect of the tarsal bones. IMPRESSION: Expected postoperative findings status post ankle arthroplasty. No acute fracture is seen . Electronically signed by: Marshall Mendes M.D. 06/11/2022 12:05 PM
--- NOTE | 2022-06-11 12:13 | Fluoroscopy Report ---
INTRAOPERATIVE RADIOGRAPHS CLINICAL HISTORY: Ankle arthroplasty. Fluoroscopy time: 76 seconds FINDINGS: 2 spot fluoroscopic views of the right ankle are obtained. No prior studies are available f or comparison at the time of dictation. An ankle arthroplasty has been placed at the tibiotalar artic ulation. Near-anatomic alignment is maintained. There is no evidence of acute fracture on these fluor oscopic views. Soft tissue edema is present around ankle and there are dorsal skin clips. IMPRESSION: Intraoperative images from an ankle arthroplasty procedure as above. Electronically signed by: Marshall Mendes M.D. 06/11/2022 12:11 PM
[2022-06-11] MEDS ORDERED: METOCLOPRAMIDE HCL INJ 5 MG/ML 2 ML VIAL IV PRN (12:55)
[2022-06-11] MEDS ORDERED: NO NSAIDS SCH (12:55)
[2022-06-11] MEDS ORDERED: bisacodyL 10 MG SUPP PR PRN (12:55)
[2022-06-11] MEDS ORDERED: NITROGLYCERIN SL 0.4 MG/TAB TAB SL PRN (12:55)
[2022-06-11] MEDS ORDERED: diphenhydrAMINE Capsule 25 MG CAP PO PRN (12:55)
[2022-06-11] MEDS ORDERED: NALOXONE HCL 0.4 MG/1 ML VIAL/CARP IV PRN (12:55)
[2022-06-11] MEDS ORDERED: HYDROmorphone INJ 0.5 MG/0.5 ML SYR IV PRN (12:55)
[2022-06-11] MEDS ORDERED: ALUMINUM/MAGNESIUM SUSP 30 ML UDC PO PRN (12:55)
[2022-06-11] MEDS ORDERED: MAGNESIUM HYDROXIDE SUSP 30 ML UDC PO PRN (12:55)
[2022-06-11] MEDS: oxyCODONE HCL IR 5 MG TAB (IMMEDIATE RELEASE) PO PRN ×2 (14:53→21:07)
[2022-06-11] MEDS: SODIUM CHLORIDE 0.9% 1000ML 1,000 ML IV SCH (14:55)
[2022-06-11] MEDS: ACETAMINOPHEN 500 MG TAB PO SCH ×2 (14:55→21:08)
[2022-06-11] MEDS: ceFAZolin 2000MG 2,000 MG/15 ML SYR IV SCH ×2 (17:25→23:59)
[2022-06-11] MEDS ORDERED: COUGH DROP (SUGAR FREE) LOZ 24 LOZ/1 BOX BUCCAL ONE (20:02)
[2022-06-11] MEDS ORDERED: VENLAFAXINE HCL XR 150 MG CAPXR PO SCH (21:00)
[2022-06-11] MEDS ORDERED: SENNA 8.6 MG TAB PO SCH (21:00)
[2022-06-11] MEDS ORDERED: ZONISAMIDE 100 MG CAPSULE PO SCH (21:00)
[2022-06-11] MEDS ORDERED: ATORVASTATIN 40 MG TAB PO SCH (21:00)
[2022-06-11] MEDS: ATENOLOL 25 MG TABLET PO SCH (21:09)
[2022-06-11] MEDS: ASPIRIN 81 MG ECTAB PO SCH (21:09)
[2022-06-11] MEDS: DOCUSATE SODIUM 100 MG CAP PO SCH (21:09)
[2022-06-11] MEDS: lisinopril 20 MG TAB PO SCH (21:09)
[2022-06-12] MEDS: SODIUM CHLORIDE 0.9% 1000ML 1,000 ML IV SCH (01:05)
[2022-06-12] MEDS: oxyCODONE HCL IR 5 MG TAB (IMMEDIATE RELEASE) PO PRN ×4 (02:10→15:44)
[2022-06-12] MEDS: ACETAMINOPHEN 500 MG TAB PO SCH ×2 (05:59→14:41)
[2022-06-12 07:48] LABS: Hematocrit (blood only) 36.9 % (34.1-44.9); Hemoglobin 11.3 g/dl (12.0-16.0); Mean Corpuscular Hemoglobin 25.9 pg (25.0-34.0); Mean Corpuscular Hgb Conc 30.6 g/dL (32.0-36.0); Mean Corpuscular Volume 84.6 fL (80.0-100.0); Mean Platelet Volume 9.3 fL (9.4-12.3); Platelet Count 388 K/uL (130-400); RDW Coefficient of Variation 23.8 % (11.5-14.5); Red Blood Count 4.36 M/uL (3.93-5.22); White Blood Count 10.25 K/ul (4.8-10.8)
[2022-06-12 08:16] LABS: BUN Creatinine Ratio 17.3 (10-20); Calcium 8.1 mg/dl (8.5-10.1); Creatinine Clr Calc Pharmacy 71.1 ml/min; Est GFR (African American) 86.5 ml/min; Est GFR (Non-African American) 74.6 ml/min; Potassium 3.6 mmol/L (3.5-5.1)
[2022-06-12] MEDS: DOCUSATE SODIUM 100 MG CAP PO SCH (08:31)
[2022-06-12] MEDS: ATENOLOL 25 MG TABLET PO SCH (08:31)
[2022-06-12] MEDS: lisinopril 20 MG TAB PO SCH (08:32)
[2022-06-12] MEDS: ASPIRIN 81 MG ECTAB PO SCH (08:32)
--- NOTE | 2022-06-12 08:47 | Orthopedic Progress Note ---
Date of Service June 12, 2022 Assessment & Plan (1) Primary osteoarthritis, right ankle and foot: Plan: Postop day 1 status post right total ankle arthroplasty PT/OT protocols. Nonweightbearing right lower extremity. DVT prophylaxis-aspirin p.o. twice daily Pain management as written. BMP pending. DC planning-patient is planning for home health services upon discharge. (2) Contracture of right Achilles tendon: Admission and Anticipated Discharge Date Admission Date: June 11, 2022 Subjective Postop day 1 Patient sitting up in bed awake and alert. No complaints this morning. Pain is controlled currently. Denies shortness of breath, chest pain, lightheadedness. Physical Exam Physical Exam: Dressings are clean, dry, and intact. Minimal drainage from the Hemovac. Toes are mobile. Cap refills less than 2 seconds. Results & Data ([facility]) Vital Signs (Past 12 Hours) Vital Signs Temp Pulse Resp BP Pulse Ox O2 Del Method 06/12/22 07:06 37.0 C 64 14 118/71 99 Room Air 06/12/22 04:44 36.9 C 64 16 112/62 97 Room Air 06/12/22 00:16 36.6 C 70 18 148/75 H 98 Room Air Laboratory Results Laboratory Results WBC 10.25 K/ul (4.8-10.8) 06/12/22 07:34 RBC 4.36 M/uL (3.93-5.22) 06/12/22 07:34 Hgb 11.3 g/dl (12.0-16.0) L 06/12/22 07:34 Hct 36.9 % (34.1-44.9) 06/12/22 07:34 MCV 84.6 fL (80.0-100.0) 06/12/22 07:34 MCH 25.9 pg (25.0-34.0) 06/12/22 07:34 MCHC 30.6 g/dL (32.0-36.0) L 06/12/22 07:34 RDW Std Deviation 71.0 fL (36.4-46.3) H 06/12/22 07:34 RDW Coeff of Sbai 23.8 % (11.5-14.5) H 06/12/22 07:34 Plt Count 388 K/uL (130-400) 06/12/22 07:34 MPV 9.3 fL (9.4-12.3) L 06/12/22 07:34 Sodium 140 mmol/L (136-145) 06/12/22 07:34 Potassium 3.6 mmol/L (3.5-5.1) 06/12/22 07:34 Chloride 107 mmol/L (98-107) 06/12/22 07:34 Carbon Dioxide 30 mmol/L (21-32) 06/12/22 07:34 Anion Gap 3 (3-11) 06/12/22 07:34 BUN 14 mg/dl (6-23) 06/12/22 07:34 Creatinine 0.81 mg/dl (0.6-1.2) 06/12/22 07:34 Est Cr Clr Drug Dosing 71.1 ml/min 06/12/22 07:34 Est GFR ( Amer) 86.5 ml/min 06/12/22 07:34 Est GFR (Non-Af Amer) 74.6 ml/min 06/12/22 07:34 BUN/Creatinine Ratio 17.3 (10-20) 06/12/22 07:34 Glucose 104 mg/dl (70-99(Fasting)) H 06/12/22 07:34 POC Glucose 84 mg/dl (70-99) 06/11/22 07:07 Calcium 8.1 mg/dl (8.5-10.1) L 06/12/22 07:34 SARS-CoV-2, RNA, NAAT NEGATIVE (NEGATIVE) 06/11/22 05:25 Impressions Ankle X-Ray 06/11/22 11:37 RIGHT ANKLE 3 VIEWS CLINICAL HISTORY: Postoperative examination. Arthroplasty. FINDINGS: 3 portable views of the right ankle are obtained. No prior studies are available for comparison at the time of dictation. The skeletal structures are osteopenic. The examination is performed through a cast, obscuring fine bony detail. An arthroplasty at the tibiotalar articulation is in near-anatomic alignment. No acute fracture is seen. A surgical drain, dorsal skin clips, soft tissue swelling, and subcutaneous gas are expected postoperative changes. There are dorsal and plantar calcaneal enthesophytes. Degenerative spurring is seen along the dorsal aspect of the tarsal bones. IMPRESSION: Expected postoperative findings status post ankle arthroplasty. No acute fracture is seen. Electronically signed by: Marshall Mendes M.D. 06/11/2022 12:05 PM
[2022-06-12] MEDS ORDERED: PANTOprazole 40 MG TAB PO SCH (09:00)
[2022-06-12] MEDS ORDERED: FUROSEMIDE 20 MG TAB PO SCH (09:00)
[2022-06-12] MEDS ORDERED: [UNRECOGNIZED DRUG - OTHER] PO SCH (09:00)
[2022-06-12] MEDS ORDERED: HYDROXYUREA 500 MG CAP PO SCH (09:00)
[2022-06-12] MEDS ORDERED: DOTERRA PO SCH (09:00)
[2022-06-12] MEDS ORDERED: MULTIVITAMIN TAB PO SCH (09:00)
[2022-06-12] MEDS ORDERED: OMEGA-3 (PURIFIED FISH OIL) 1 GM CAP PO SCH (09:00)
--- NOTE | 2022-06-16 16:01 | Discharge Summary ---
Date of Service June 16, 2022 Admission HPI Per Admitting Provider This is a patient with a long history of right ankle pain. She been treated conservatively for right ankle osteoarthritis. However, she has failed all conservative management. She is now being set up for surgical management. Principal Diagnosis Right ankle osteoarthritis Discharge Exam Constitutional well developed and well nourished; no acute distress ENMT external ear and nose normal, oropharynx normal Neck trachea midline Respiratory normal respiratory effort, lungs clear to auscultation Cardiovascular Rate/Rhythm: regular rate and regular rhythm Gastrointestinal (Abdomen) normal bowel sounds, soft, nontender, no hepatosplenomegaly Musculoskeletal Ankle: + surgical incision (Right ankle: Splint C/C/I); no skin erythema, no ecchymosis and no joint line tenderness (ankle) (Right anterior and posterior ankle) Skin no rashes, warm and dry Trauma: no evidence of skin trauma Neurologic normal touch/pain/proprioception Psychiatric A+Ox3, euthymic affect Speech: normal rate/rhythm/volume of speech Lymphatic no cervical or axillary lymphadenopathy Discharge Data Allergies Allergy/AdvReac Type Severity Reaction Status Date / Time Penicillins Allergy Mild RASH Verified 06/11/22 05:43 Sulfa (Sulfonamide Allergy Mild RASH Verified 06/11/22 05:43 Antibiotics) Procedures Performed Operation Date: 06/11/22 07:15 Actual Procedures p Right [facility] Total Ankle Arthroplasty(Right) - Jovan Reyes DO s Percutaneous Tendon Achilles Lengthening(Right) - Jovan Reyes DO Ordered Studies 06/11/22 07:15 FL ankle RT 2V Routine 06/11/22 07:31 US - OR guided needle placemen Routine Hospital Course (1) Primary osteoarthritis, right ankle and foot: Postop day 1 status post right total ankle arthroplasty PT/OT protocols. Nonweightbearing right lower extremity. DVT prophylaxis-aspirin p.o. twice daily Pain management as written. BMP pending. DC planning-patient is planning for home health services upon discharge. (2) Contracture of right Achilles tendon: Total Time Total Time Spent Total Time Spent (In Minutes): 20 Discharge Plan Discharge Items Patient Disposition: Home - Home Health Services Reason For Visit: Primary Osteoarthritis of Right Ankle Discharge Diagnosis: Right ankle osteoarthritis Activity: Per Instructions section Weightbearing: Right non-weightbearing Weightbearing Comment: Use knee scooter or walker to remain nonweightbearing right foot Non-emergency contact: Surgeon Call non-emergency contact if: your pain is not controlled, your pain is worsening and your temperature is above 101 Follow-up/Referrals: Jovan Reyes DO [Surgeon] - (Follow-up with Dr. Reyes in 2 weeks from the day of your surgery for your first postoperative visit.) Ian Shepard M.D. [Primary Care Provider] - Diet: Regular Addtl Attending Provider Instructions: ACTIVITY RECOMMENDATIONS: Limitations: No weight bearing to affected limb at all times. SPECIAL CARE INSTRUCTIONS: * Take Aspirin 81 mg every 12 hours for 4 weeks for postoperative blood clot prophylaxis. * Some drainage onto the dressing is normal and is no cause for alarm. * Some swelling is natural especially after walking. * When resting, keep your foot elevated above the level of your heart. * Call [facility] if you notice: -Increased drainage -Fever over 101 degrees F -Severe constant pain BANDAGE: * Leave bandage/cast in place unless otherwise directed. * Keep bandage/cast dry at all times. FOLLOW UP VISIT WITH DR. REYES If appointment is not already scheduled: Please call [facility] after you get home today to schedule a follow-up appointment for [address] Reyes at . Pending Studies at Discharge: No Stand-Alone Forms: My [facility], Opioid Pain Management, Smoking Cessation Medications and DC Order Prescriptions: New aspirin 81 mg Tablet,Delayed Release (Dr/Ec) 81 mg PO BID 30 Days Qty: 60 0RF acetaminophen [Tylenol Extra Strength] 500 mg Tablet 1,000 mg PO Q8 14 Days Qty: 84 0RF polyethylene glycol 3350 [Miralax] 17 gram powder in packet 17 g PO DAILY PRN (Reason: constipation) Qty: 5 0RF oxycodone 5 mg tablet 5 mg PO Q4H MDD 6 PRN (Reason: pain) Qty: 30 0RF Continued atorvastatin [Lipitor] 80 mg Tablet 80 mg PO HS lisinopril 20 mg Tablet 20 mg PO BID atenolol 25 mg Tablet 25 mg PO BID venlafaxine [Effexor XR] 150 mg Capsule,Extended Release 24hr 300 mg PO HS zonisamide 100 mg Capsule 200 mg PO HS pantoprazole [Protonix] 40 mg Tablet,Delayed Release (Dr/Ec) 40 mg PO QAM furosemide [Lasix] 20 mg Tablet 20 mg PO QAM omega-3 fatty acids Capsule 1,000 mg PO QAM Doterra 1 dose PO QAM Microplex Doterra 1 dose PO QAM hydroxyurea 500 mg Capsule 500 mg PO QAM nitroglycerin 0.4 mg Tablet, Sublingual 0.4 mg sublingual UD PRN (Reason: Chest Pain) Discontinued aspirin [Aspir-81] 81 mg Tablet,Delayed Release (Dr/Ec) 81 mg PO QAM Discharge Orders: Discharge Order (Routine); Ordered 06/12/22 Ordered By: Jaya Florian Admission Data Admit Date/Time: 06/11/22 13:27 Attending Provider: Jovan Reyes Admit Provider: Jovan Reyes Primary Care Provider: Ian Shepard Other Interventions: Discharge Summary Assessment (RN) Last Done: 06/12/22 15:09
== END 2022-06-12 16:48 | disposition home health service (06) ==
LOC: ASU 05:01 → 3E 05:01